=== PATIENT | male | born 1955 | race Hispanic/Latino ===

== ENCOUNTER 2016-12-04 11:18 | Outpatient (CLI) | payer BC ==
--- NOTE | 2016-12-04 17:02 | Vascular Lab Report ---
Right LOWER EXTREMITY ARTERIAL DUPLEX: REASON FOR EXAM: Peripheral arterial disease. COMMENTS ON THE RIGHT: Triphasic waveforms are seen proximally. Biphasic waveforms are seen distally. No significant velocity gradients are identified. No focal significant plaque is identified. Findings are consistent with normal perfusion. Findings are consistent with the ability to heal distal wounds. IMPRESSION: RIGHT: Essentially normal arterial flow.
== END 2016-12-04 11:19 | disposition home or self-care (01) ==
LOC: VAS 11:18
PROVIDERS: ATTEND Family Medicine
DX: M79.651 Pain in right thigh (principal); M79.604 Pain in right leg